=== PATIENT | male | born 1995 | race Caucasian/White ===

== ENCOUNTER 2020-10-25 05:30 | Emergency (ER) | payer BC ==
[~2020-10-25] VITALS: Ht 177.8 cm; Wt 104.3 kg
[2020-10-25 05:43] VITALS: BP 120/64
--- NOTE | 2020-10-25 05:43 | NUR ---
TO [facility]
--- NOTE | 2020-10-25 05:45 | NUR ---
SWAB DONE AND SENT TO LAB
[2020-10-25] MEDS ORDERED: IBUPROFEN 800 MG TAB PO ONE (06:05)
[2020-10-25] MEDS ORDERED: ACETAMINOPHEN EXTRA STRENGTH 500 MG TAB PO ONE (06:05)
--- NOTE | 2020-10-25 06:25 | NUR ---
PT TAKEN TO XRAY
--- NOTE | 2020-10-25 07:00 | NUR ---
result back and noted by ermd and for d/c
[2020-10-25 07:40] VITALS: BP 127/63
--- NOTE | 2020-10-25 07:40 | NUR ---
Patient discharged with v/s stable. Written and verbal after care instructions given and explained. Patient alert, oriented and verbalized understanding of instructions. Ambulatory with steady gait. All questions addressed prior to discharge. ID band removed. Patient advised to follow up with PMD. Rx of prednisone, azithromycin, ventolin given. Patient educated on indication of medication including possible reaction and side effects. Opportunity to ask questions provided and answered.
== END 2020-10-25 07:40 | disposition home or self-care (01) ==
LOC: MED 05:30
DX: R50.9 Fever, unspecified (principal); Z20.828 Contact with and (suspected) exposure to other viral communicable diseases
CPT/HCPCS: 71045; 99284; U0003